=== PATIENT | male | born 1985 | race Caucasian/White ===

== ENCOUNTER → 2018-06-24 12:32 | Outpatient (CLI) | payer MEDICAID, SELFPAY ==
[2018-06-24 12:53] LABS: Basophils # 0.1 K/mm3 (0-0.2); Basophils % 1.2 % (0.1-2.0); Eosinophils # 0.7 K/mm3 (0.0-0.4); Eosinophils % 9.2 % (0.1-12.0); Hematocrit 44.5 % (42.0-52.0); Lymphocytes % 26.3 % (10-50); Mean Corpuscular HGB Conc 33.7 g/dL (31.8-35.4); Mean Corpuscular Hemoglobin 28.1 pg (27.0-31.2); Mean Corpuscular Volume 83.4 fl (80-94); Mean Platelet Volume 6.6 fl (7.4-10.4); Monocytes # 0.3 K/mm3 (0.1-1.0); Monocytes % 4.6 % (1.7-9.3); Neutrophils # 4.4 K/mm3 (1.8-7.8); Neutrophils % 58.7 % (37.0-80.0); Platelet Count 343 K/mm3 (142-424); Red Blood Count 5.34 M/mm3 (4.60-6.20); Red Cell Distribution Width 13.5 % (11.5-17.5); White Blood Count 7.5 K/mm3 (4.8-10.8)
[2018-06-24 13:03] LABS: Hemoglobin A1C 5.8 % (0.0-7.0)
[2018-06-24 14:45] LABS: Alanine Aminotransferase 33 U/L (12-78); Alkaline Phosphatase 120 U/L (46-116); Anion Gap 14.4 mEq/L (5-15); Aspartate Amino Transferase 16 U/L (15-37); Bilirubin,Direct 0.1 mg/dL (0.0-0.2); Bilirubin,Indirect 0.3 mg/dL (0.0-0.9); Bilirubin,Total 0.4 mg/dL (0.2-1.0); Blood Urea Nitrogen 9 mg/dL (7-18); Calcium 9.5 mg/dL (8.5-10.1); Carbon Dioxide 28 mmol/L (21.0-32.0); Chloride 99 mmol/L (98-107); Chol/HDL Ratio 4.7 (1-3.5); Cholesterol 173 mg/dL (140-200); Creatinine,Serum 0.99 mg/dL (0.70-1.30); Estimated Glomerular Filt Rate 88 ml/min (>60); GFR (African American) 107 ML/MIN (>60); Glucose 79 mg/dL (74-106); HDL Cholesterol 37 mg/dL (27-67); LDL Cholesterol 101 mg/dL (0-130); Potassium 4.4 mmoL/L (3.5-5.1); Sodium 137 mmol/L (136-145); Triglycerides 174 mg/dL (30-200); VLDL Cholesterol 35 mg/dL (0-40)
== END ==
PROVIDERS: Visit Provider Internal Medicine Adolescent Medicine
DX: Z00.00 Encounter for general adult medical examination without abnormal findings (principal)
CPT/HCPCS: 36415; 80053; 80061; 80076; 83036; 85025

== ENCOUNTER → 2018-06-29 10:40 | Outpatient (CLI) | payer MEDICAID, SELFPAY ==
[2018-06-29 11:31] VITALS: PULSE 85; PULSE 87
== END ==
PROVIDERS: PCP Internal Medicine Adolescent Medicine; Visit Provider Internal Medicine Adolescent Medicine
DX: J45.40 Moderate persistent asthma, uncomplicated (principal)
CPT/HCPCS: 94060; 94640; 94727; 94729